=== PATIENT | female | born 1965 | race Caucasian/White ===

== ENCOUNTER → 2017-12-14 | Outpatient (CLI) | payer BC | END | disposition home or self-care (01) | LOC: CFH 09:11 | PROVIDERS: ATTEND Family Medicine | DX: Z12.31 Encounter for screening mammogram for malignant neoplasm of breast (principal) | CPT/HCPCS: 77063; 77067 ==

== ENCOUNTER 2018-12-13 20:38 | Emergency (ER) | payer BC ==
[~2018-12-13] VITALS: Ht 177.8 cm; Wt 111.8 kg
[2018-12-13 20:44] VITALS: BP 167/106
[2018-12-13] MEDS ORDERED: PROPARACAINE OPHTH 0.5%, 15ML ONE (21:06)
[2018-12-13] MEDS ORDERED: FLUORESCEIN OPHTHALMIC 1 MG STRIP ONE (21:06)
[2018-12-13] MEDS ORDERED: PROPARACAINE OPHTH 0.5%, 15ML EACHEYE ONE (21:30)
[2018-12-13] MEDS ORDERED: FLUORESCEIN OPHTHALMIC 1 MG STRIP EACHEYE ONE (21:30)
[2018-12-13] MEDS ORDERED: PLEASE ENTER ALLERGIES MC SCH (21:30)
== END 2018-12-13 21:43 | disposition home or self-care (01) ==
LOC: ED 20:56
DX: S05.01XA Injury of conjunctiva and corneal abrasion without foreign body, right eye, initial encounter (principal); W22.8XXA Striking against or struck by other objects, initial encounter; Y93.89 Activity, other specified; Y92.89 Other specified places as the place of occurrence of the external cause; Y99.8 Other external cause status
CPT/HCPCS: 99283